=== PATIENT | male | born 1955 | race Caucasian/White ===

== ENCOUNTER → 2017-02-08 | Day surgery (SDC) | payer BC ==
[~2017-02-08] MED LIST: ACTOS 15 MG15 MG PO; ALTACE10 MG PO; ASPIRIN325 MG PO; BYSTOLIC10 MG PO; CELEBREX200 MG PO; FLONASE 50 MCG/16 GM NOSE; HYDROCHLOROTH12.5 MG PO; LIPITOR10 MG PO; OSCAL + D500 MG PO; PRECOSE25 MG PO; TAB-A-VITE1 EACH PO; TRULICITY1.5 MG/0.5 SUB-Q; VITAMIN D1000 UNI1 PO; XIGDUO XR 10 M1 EACH PO
== END ==
LOC: GPOC 01-30 15:00 → GSDC 02-01 15:00
PROC: 3E0S33Z Introduction of Anti-inflammatory into Epidural Space, Percutaneous Approach (ICD-10-PCS; principal; 2017-02-08)
PROC: 3E0S3BZ Introduction of Anesthetic Agent into Epidural Space, Percutaneous Approach (ICD-10-PCS; 2017-02-08)
DX: M54.16 Radiculopathy, lumbar region (principal); E78.00 Pure hypercholesterolemia, unspecified; I10 Essential (primary) hypertension; E11.9 Type 2 diabetes mellitus without complications; M48.00 Spinal stenosis, site unspecified; Z90.49 Acquired absence of other specified parts of digestive tract; Z98.890 Other specified postprocedural states
CPT/HCPCS: J1030; J1040